=== PATIENT | male | born 1960 | race Caucasian/White ===

== ENCOUNTER → 2017-05-21 | Outpatient (CLI) | payer BC ==
[~2017-05-21] MED LIST: ASPI1TAB PO; ASPI325T24 PO; ATOR40TA75 PO; CENTTAB47 PO; CLON0.5T PO; CORE3.12 PO; GASTROGRAFIN SOLUTION 30ML (Q9963) As Ordered ONE; ISOVUE-370 76% 100ML VIAL (Q9967) As Ordered ONE; OMEP40CA2 PO; RAMI5CA PO; VENL150T PO
--- NOTE | 2017-05-21 16:54 | REP ---
CT abdomen pelvis, without and with IV contrast, with oral contrast. History: Right upper quadrant pain.. Comparison CT study abdomen pelvis is from November 06, 2009. 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 Lung bases are clear. There is no evidence of pleural effusion or upper abdominal ascites. The liver and the spleen are normal in size and homogeneous in texture. Gallbladder is surgically absent. No adrenal lesion is seen on either side. No pancreatic abnormalities observed. The kidneys enhance symmetrically are morphologically intact. There is a cyst projecting anteriorly from the lower pole left kidney measuring 13 mm. Normal caliber aorta. No retroperitoneal mass or adenopathy is seen. A normal appendix is observed small and large intestinal bowel loops are normal in the abdomen and pelvis. No pelvic mass or adenopathy is seen. Prostate is mildly prominent. Urinary bladder is intact. No abdominal wall defect is observed. Bone window settings show no bony destructive lesion. There are degenerative spondylosis changes in the lumbar spine. Impression: No acute abdominal or pelvic abnormality. Signed by William Rodriguez MD 05/22/2017 09:37 A
== END ==
LOC: M RAD 14:26
PROVIDERS: ATTEND Physician Assistant Medical
DX: R10.11 Right upper quadrant pain (principal)

== ENCOUNTER → 2017-05-22 | Outpatient (CLI) | payer BC ==
[~2017-05-22] MED LIST changes: -GASTROGRAFIN SOLUTION 30ML (Q9963) As Ordered ONE; -ISOVUE-370 76% 100ML VIAL (Q9967) As Ordered ONE
[2017-05-22 12:43] LABS: MEAN CORPUSCULAR HEMOGLOBIN 29.3 pg (27.0-33.0); MEAN CORPUSCULAR HGB CONC 34.8 g/dl (32.0-36.5); MEAN CORPUSCULAR VOLUME 84.3 fl (80.0-96.0); PLATELET COUNT, AUTOMATED 259 10^3/uL (150-450); RED CELL DISTRIBUTION WIDTH 11.9 % (11.5-14.5)
[2017-05-22 13:06] LABS: ALBUMIN 3.9 GM/DL (3.2-5.2); ALBUMIN/GLOBULIN RATIO 1.15 (1.00-1.93); ALKALINE PHOSPHATASE 89 U/L (45-117); ALT/SGPT 32 U/L (12-78); ANION GAP 7 MEQ/L (8-16); AST/SGOT 17 U/L (7-37); BILIRUBIN,TOTAL 0.7 MG/DL (0.2-1.0); BLOOD UREA NITROGEN 16 MG/DL (7-18); CALCIUM LEVEL 9.1 MG/DL (8.5-10.1); CARBON DIOXIDE LEVEL 28 MEQ/L (21-32); CHLORIDE LEVEL 105 MEQ/L (98-107); CREATININE FOR GFR 0.89 MG/DL (0.70-1.30); FREE T4 0.78 NG/DL (0.76-1.46); GLOMERULAR FILTRATION RATE > 60.0 (>56); GLUCOSE, FASTING 76 MG/DL (70-105); PERCENT SATURATION 23.8 % (19.7-50.0); POTASSIUM SERUM 4.7 MEQ/L (3.5-5.1); SODIUM LEVEL 140 MEQ/L (136-145); TOTAL IRON BINDING CAPACITY 332 UG/DL (250-450); TOTAL PROTEIN 7.3 GM/DL (6.4-8.2)
== END ==
LOC: M WUC 10:18
PROVIDERS: ATTEND Physician Assistant Medical
DX: R10.11 Right upper quadrant pain (principal)

== ENCOUNTER 2018-12-01 22:29 | Emergency (ER) | payer BC ==
[~2018-12-01] VITALS: Ht 180.3 cm; Wt 98.2 kg
[~2018-12-01 22:29] MED LIST changes: +ASPI-255 PO; -ASPI1TAB PO; -ASPI325T24 PO; +ASPI81TA26 PO; -CLON0.5T PO; +CLON0.5T8 PO; +RAMI1CAP24 PO; -RAMI5CA PO; -VENL150T PO; +VENL150T14 PO
[2018-12-01] MEDS ORDERED: DICY10AM PO (22:56)
[2018-12-02] MEDS ORDERED: methylPREDNISolone INJ 125 MG/2 ML VIAL (J2930) IM ONE (00:15)
[2018-12-02] MEDS ORDERED: diazePAM 10 MG TAB PO ONE (00:15)
[2018-12-02] MEDS ORDERED: KETOROLAC 60 MG/2 ML VIAL (J1885) IM ONE (01:45)
[2018-12-02] MEDS ORDERED: VALI5TAB PO (02:13)
[2018-12-02 02:14] VITALS: BP 128/68
[2018-12-02] MEDS ORDERED: diazePAM 5 MG TAB PO ONE (02:30)
== END 2018-12-02 02:28 | disposition home or self-care (01) ==
LOC: M ED 22:29
DX: M54.31 Sciatica, right side (principal); M54.5 Low back pain; I25.2 Old myocardial infarction; I10 Essential (primary) hypertension; K58.9 Irritable bowel syndrome, unspecified; Z95.5 Presence of coronary angioplasty implant and graft; Z79.82 Long term (current) use of aspirin; Z79.899 Other long term (current) drug therapy; Z88.0 Allergy status to penicillin
CPT/HCPCS: 96372; 99283; J1885; J2930

== ENCOUNTER → 2021-06-25 | Outpatient (CLI) | payer BC ==
[~2021-06-25] MED LIST changes: +CLON0.5T2 PO; -CLON0.5T8 PO; +DICY10AM PO; -OMEP40CA2 PO; +OMEP40CA4 PO; +VALI5TAB PO
--- NOTE | 2021-06-25 08:49 | REP ---
INDICATION: VOMITTING TECHNIQUE: Real time B-mode [place]ri[place] scale ultrasound examination using curved array transducer. FINDINGS: Liver, spleen, and visualized portions of the pancreas are normal in contour, size, echogenicity, and overall appearance. No focal hepatic, splenic or pancreatic lesions are identified. Splenic index equals 343. Gallbladder is not identified and possibly surgically absent or collapsed. No biliary ductal dilatation is appreciated and the common bile duct measures 3.7 mm in diameter. The bilateral kidneys are normal in reniform shape without hydronephrosis or obvious abnormality. Right kidney measures 11.5 x 5.8 x 6.5 cm. Left kidney measures 12.5 x 4.7 x 5.6 cm and includes 1.4 cm and 1.2 cm cysts. Cm. Visualized abdominal aorta appears normal. No obvious ascites. IMPRESSION: Essentially normal age-appropriate complete abdominal ultrasound. <Electronically signed by Son Fitch > 06/25/21 [id number]
== END ==
LOC: M RAD 08:12
PROVIDERS: ATTEND Nurse Practitioner Family
DX: R10.84 Generalized abdominal pain (principal); K59.00 Constipation, unspecified; R14.0 Abdominal distension (gaseous); K21.9 Gastro-esophageal reflux disease without esophagitis; N28.1 Cyst of kidney, acquired